=== PATIENT | female | born 1985 | race Hispanic/Latino ===

== ENCOUNTER 2017-02-18 16:39 | Emergency (ER) | payer OTHER ==
[2017-02-18 16:52] VITALS: BMI 27.2
[2017-02-18] MEDS ORDERED: Betamethasone Soluspan 30 mg/5mL Inj Susp IM ONE (16:53)
== END 2017-02-18 17:40 | disposition home or self-care (01) ==
LOC: H.EROB2 16:39
DX: O26.873 Cervical shortening, third trimester (principal); Z3A.32 32 weeks gestation of pregnancy

== ENCOUNTER 2017-02-19 16:57 | Emergency (ER) | payer OTHER ==
[2017-02-18 16:52] VITALS: BMI 27.2
--- NOTE | 2017-02-19 17:03 | OBHP ---
Datetime: 02/19/2017 08:34 IP Adm Impression: , intrauterine ; No Active Labor IP Admit Plan: Discharge home Admit Comment, IP Provider: 31-year-old [id number] at 31 weeks gestational age with finding of shortened cervix in office. He was transferred via primary physician here for steroid course. He is without co mplaints at this time. Patient denies any contractions, vaginal bleeding, leakage of fluid. Patient r eports good movement. Past medical history hypothyroidism Past surgical history none Medications Synthroid, vitamins Allergies penicillin Obstetrical history vaginal delivery 1, full-term vaginal delivery 1 Social history no tobacco, no alcohol, no drugs Assessment: History of labor and delivery with shortened cervix Plan: Patient here for beginning of steroid course. Patient symptomatically this time. heart jack ng reassuring. Patient DC'd home. Patient will return in 24 hours for second steroid course. Extremities - PN: Normal Lungs - PN: Normal Heart - PN: Normal HEENT - PN: Normal General - PN: Normal FHR - Baseline A Provider: 140s EGA AdmitDate IP: 31.5 Vital Signs Provider: Reviewed; Within Normal Limits IP Chief Complaint: Other NICHD Variability Prov Fetus A: Moderate 6-25bpm NICHD Accel Fetus A IP Provider: [id number] FHR Category Provider Fetus A: Category I NICHD Decel Fetus A IP Provider: None
[2017-02-19] MEDS ORDERED: Betamethasone Soluspan 30 mg/5mL Inj Susp IM ONE (17:07)
--- NOTE | 2017-02-19 17:46 | OBHP ---
Datetime: 02/19/2017 17:37 IP Adm Impression: , intrauterine ; No Active Labor IP Admit Plan: Observation/Evaluation; Discharge home Admit Comment, IP Provider: The patient is a 31-year-old 3 para 2 presents to [facility] at 32 weeks for steroid administration. Patient was noted to have shortened cervix and her PMD r eferred her to [facility] for steroids. Patient denies any uterine contractions vaginal bleeding or leakage of fluid. Patient's care this unremarkable. Past medical history none Past surgical history none Allergic to penicillin Social history denies alcohol tobacco use Medications vitamins Obstetrical history one delivery at 35 weeks normal vaginal delivery second full -term normal vaginal delivery Review of systems patient denies headache chest pain shortness of breath palpitations nausea vomit ing dysuria constipation vaginal bleeding or cold intolerance easy bruisability neurological musculos keletal complaints Vital signs stable afebrile Physical exam see notes Intrauterine at 32 weeks History of delivery Short cervix We'll administer steroids Category 1 tracing Follow-up her PMD Pelvic Type - PN: Adequate Extremities - PN: Normal Abdomen - PN: Normal Back - PN: Normal Breast - PN: Not Done Lungs - PN: Normal Heart - PN: Normal Thyroid - PN: Normal Neurologic - PN: Normal HEENT - PN: Normal General - PN: Normal FHR - Baseline A Provider: 145 EGA AdmitDate IP: 31.5 Vital Signs Provider: Reviewed IP Chief Complaint: Other NICHD Variability Prov Fetus A: Moderate 6-25bpm NICHD Accel Fetus A IP Provider: 15X15 FHR Category Provider Fetus A: Category I NICHD Decel Fetus A IP Provider: None Dilatation, Provider: 0 Effacement, Provider: 0 Station, Provider: 0 Genitourinary Exam: Normal DTRs - PN: Normal
== END 2017-02-19 17:58 | disposition home or self-care (01) ==
LOC: H.EROB2 16:57
DX: O26.873 Cervical shortening, third trimester (principal); Z3A.32 32 weeks gestation of pregnancy

== ENCOUNTER 2017-04-21 09:14 | Inpatient (IN) | payer OTHER ==
[2017-04-21] MEDS: Lactated Ringer's 1,000 ML IV SCH ×4 (09:30→23:04)
[2017-04-21 09:31] VITALS: BMI 23.6
--- NOTE | 2017-04-21 09:54 | OBHP ---
Datetime: 04/21/2017 09:49 IP Adm Impression: Term, intrauterine ; No Active Labor IP Admit Plan: Admit to unit Admit Comment, IP Provider: Patient is a 3 para 2 estimated due date 04/24/2017 estimated ge stational age 39+ weeks. Patient presents to labor and delivery for induction of labor. Patient has h istory of precipitous delivery. Patient reports good movement no vaginal bleeding no leakage of fluid no contractions. Patient states care significant for GBS positive culture otherwise u nremarkable. Past medical history hypothyroid Medications Synthroid and vitamins Surgical history significant for ACL repair Social history denies alcohol tobacco use Obstetrical history 2 normal spontaneous vaginal deliveries one delivery delivery patient received steroids this Review of systems patient denies headache chest pain shortness of breath palpitations nausea vomit ing diarrhea constipation dysuria vaginal bleeding or cold intolerance she is to present musculoskele lucien or neurological complaints Vital signs stable afebrile Physical exam see notes Intrauterine at 39+ weeks history of precipitous delivery Patient referred to labor and delivery by PMD for induction of labor External monitor Routine labs PMD is determined induction agent of choice Pelvic Type - PN: Adequate Extremities - PN: Normal Abdomen - PN: Normal Back - PN: Normal Breast - PN: Normal Lungs - PN: Normal Heart - PN: Normal Thyroid - PN: Normal Neurologic - PN: Normal HEENT - PN: Normal General - PN: Normal Weight - Estimated: 7 Presentation-Admit: Vertex FHR - Baseline A Provider: 145 Gestation - Est Wks by US: 39.0 Pool Provider: Negative EGA AdmitDate IP: 39.4 Vital Signs Provider: Reviewed IP Chief Complaint: Scheduled induction of labor NICHD Variability Prov Fetus A: Moderate 6-25bpm NICHD Accel Fetus A IP Provider: [id number] NICHD Decel Fetus A IP Provider: None Dilatation, Provider: 1 Effacement, Provider: 90 Station, Provider: -2 Genitourinary Exam: Normal DTRs - PN: Normal
[2017-04-21 10:18] LABS: BASO % 0.5 % (0.0-2.0); EOS # 0.1 K/uL (0.0-0.7); EOS % 0.9 % (0.0-4.0); HEMOGLOBIN 12.6 g/dL (12.0-16.0); LYMPH # 2.1 K/uL (1.0-4.3); LYMPH % 25.6 % (20.0-40.0); MEAN CELL VOLUME 90.5 fl (81.0-99.0); MEAN CORPUSCULAR HEMOGLOBIN 29.7 pg (27.0-31.0); MEAN CORPUSCULAR HGB CONC 32.8 g/dL (33.0-37.0); MEAN PLATELET VOLUME 11.3 fl (7.2-11.7); MONO # 0.4 K/uL (0.0-0.8); MONO % 5.2 % (0.0-10.0); NEUT # 5.7 K/uL (1.8-7.0); NEUT % 67.8 % (50.0-75.0); NRBC % 0.1 % (0.0-0.0); RBC 4.25 Mil/uL (3.80-5.20); RED CELL DISTRIBUTION WIDTH 14.1 % (11.5-14.5); WHITE BLOOD COUNT 8.3 K/uL (4.8-10.8)
[2017-04-21] MEDS ORDERED: Oxytocin 30 units/LR 500ML 30 U/500 ML BAG IV ONE ×2 (10:32→14:18)
[2017-04-21 10:33] LABS: ALB/GLOB RATIO 1.2 (1.0-2.1); ALBUMIN 3.7 g/dL (3.5-5.0); ALT/SGPT 40 U/L (9-52); AST/SGOT 34 U/L (14-36); BLOOD UREA NITROGEN 10 mg/dl (7-17); CALCIUM 9.4 mg/dL (8.4-10.2); GFR AFRICAN-AMERICAN > 60; GFR NON-AFRICAN AMERICAN > 60
[2017-04-21 10:43] LABS: INR 0.8 (0.9-1.2); PARTIAL THROMBOPLASTIN TIME 27.8 Seconds (25.6-37.1); PROTHROMBIN TIME 9.2 Seconds (9.8-13.1)
[2017-04-21 10:46] VITALS: RESP 18; TEMP 98.2; O2SAT 100
[2017-04-21 10:52] LABS: URIC ACID 5.3 mg/Dl (2.2-7.5)
--- NOTE | 2017-04-21 14:07 | OBPN ---
Datetime: 04/21/2017 14:06 IP Progress Impression: Normal progression of labor IP Informed Consent Obtain: Vaginal Delivery; Induction of Labor; Risks, Benefits and Alternatives D iscussed IP Procedures: Artificial ROM IP Progress Plan: Continue present management; Induction Membranes, Provider: Ruptured Amniotic Fluid Color, Provider: Clear Presentation-Admit: Vertex IP Progress Note Comment: continue induction, pt declines epidural. FHR Category Provider Fetus A: Category I Dilatation, Provider: 6 Effacement, Provider: 90 Station, Provider: -2 Datetime: 04/21/2017 09:49 Pool Provider: Negative FHR - Baseline A Provider: 145 Gestation - Est Wks by US: 39.0 Weight - Estimated: 7 Vital Signs Provider: Reviewed NICHD Accel Fetus A IP Provider: [id number] NICHD Variability Prov Fetus A: Moderate 6-25bpm NICHD Decel Fetus A IP Provider: None
--- NOTE | 2017-04-21 14:07 | OBADHP ---
Datetime: 04/21/2017 14:06 Presentation-Admit: Vertex Amniotic Fluid Color, Provider: Clear Membranes, Provider: Ruptured FHR Category Provider Fetus A: Category I Dilatation, Provider: 6 Effacement, Provider: 90 Station, Provider: -2 Datetime: 04/21/2017 09:49 Admit Comment, IP Provider: Patient is a 3 para 2 estimated due date 04/24/2017 estimated ge stational age 39+ weeks. Patient presents to labor and delivery for induction of labor. Patient has h istory of precipitous delivery. Patient reports good movement no vaginal bleeding no leakage of fluid no contractions. Patient states care significant for GBS positive culture otherwise u nremarkable. Past medical history hypothyroid Medications Synthroid and vitamins Surgical history significant for ACL repair Social history denies alcohol tobacco use Obstetrical history 2 normal spontaneous vaginal deliveries one delivery delivery patient received steroids this Review of systems patient denies headache chest pain shortness of breath palpitations nausea vomit ing diarrhea constipation dysuria vaginal bleeding or cold intolerance she is to present musculoskele lucien or neurological complaints Vital signs stable afebrile Physical exam see notes Intrauterine at 39+ weeks history of precipitous delivery Patient referred to labor and delivery by PMD for induction of labor External monitor Routine labs PMD is determined induction agent of choice Pelvic Type - PN: Adequate Extremities - PN: Normal Abdomen - PN: Normal Back - PN: Normal Breast - PN: Normal Lungs - PN: Normal Heart - PN: Normal Thyroid - PN: Normal Neurologic - PN: Normal HEENT - PN: Normal General - PN: Normal Weight - Estimated: 7 FHR - Baseline A Provider: 145 Gestation - Est Wks by US: 39.0 Pool Provider: Negative Vital Signs Provider: Reviewed IP Chief Complaint: Scheduled induction of labor NICHD Variability Prov Fetus A: Moderate 6-25bpm NICHD Accel Fetus A IP Provider: [id number] NICHD Decel Fetus A IP Provider: None Genitourinary Exam: Normal DTRs - PN: Normal EGA AdmitDate IP: 39.4 IP Adm Impression: Term, intrauterine ; No Active Labor IP Admit Plan: Admit to unit
[2017-04-21] MEDS ORDERED: Lidocaine 1% Inj (20ml) ONE (14:10)
[2017-04-21] MEDS ORDERED: Oxycodone/Acetaminophen 5/325 mg Tab PO PRN (14:14)
[2017-04-21] MEDS ORDERED: Benzocaine/Menthol SPRAY TOP PRN (14:14)
--- NOTE | 2017-04-21 15:48 | OBDS ---
DELIVERY PERSONNEL Delivery Doctor: Ehsan Vazquez MD [employer] Technology Instructor: April Garcia RN MATERNAL INFORMATION Delivery Anesthesia: Local Medications in Delivery: Pitocin 30 units Placenta Cultured: No Provider Comments: uncomplicated of VFN over 2nd degree laceration. placenta delivered intact. repair in usual fashion. mother and stable and bonding. LABOR SUMMARY EDC: 04/24/2017 00:00 No. Babies in Womb: 1 LABOR INFORMATION Reason for Induction: Other Reason for Induction Other: elective Oxytocin: Augmentation Group B Beta Strep: Positive Antibiotics # of Doses: 2 Antibiotics Time of Last Dose: 1445 MEMBRANES Membranes Rupture Method: Artificial Rupture of Membranes: 04/21/2017 14:00 Amniotic Fluid Color: Clear Amniotic Fluid Amount: Moderate Amniotic Fluid Odor: Normal VAGINAL DELIVERY Episiotomy: None Laceration Extension: Second Degree Laceration Type: Perineal Laceration Repair Note: repair in usual sterile fashion with 2-0 chromic suture. no rectal or cervic al lacerations. Sponge Count Correct: Yes Sharps Count Correct: Yes PRESENTATION/POSITION BABY A Presentation: Cephalic Cephalic Presentation: Vertex Vertex Position: Right Occipital Anterior Breech Presentation: N/A PLACENTA INFORMATION BABY A Placenta Method of Delivery: Expressed Placenta Status: Delivered CORD INFORMATION BABY A Nuchal Cord : N/A True Knot: 0
[2017-04-21 21:08] LABS: BASO % 0.2 % (0.0-2.0); EOS % 0.1 % (0.0-4.0); HEMOGLOBIN 10.5 g/dL (12.0-16.0); LYMPH # 1.9 K/uL (1.0-4.3); LYMPH % 17.9 % (20.0-40.0); MEAN CELL VOLUME 90.5 fl (81.0-99.0); MEAN CORPUSCULAR HEMOGLOBIN 29.9 pg (27.0-31.0); MEAN CORPUSCULAR HGB CONC 33.1 g/dL (33.0-37.0); MEAN PLATELET VOLUME 10.8 fl (7.2-11.7); MONO # 0.7 K/uL (0.0-0.8); MONO % 6.1 % (0.0-10.0); NEUT # 8.2 K/uL (1.8-7.0); NEUT % 75.7 % (50.0-75.0); RBC 3.51 Mil/uL (3.80-5.20); RED CELL DISTRIBUTION WIDTH 13.7 % (11.5-14.5); WHITE BLOOD COUNT 10.8 K/uL (4.8-10.8)
[2017-04-21 21:17] LABS: ALB/GLOB RATIO 1.1 (1.0-2.1); ALT/SGPT 49 U/L (9-52); AST/SGOT 40 U/L (14-36); BLOOD UREA NITROGEN 13 mg/dl (7-17); GFR AFRICAN-AMERICAN > 60; GFR NON-AFRICAN AMERICAN > 60; URIC ACID 5.4 mg/Dl (2.2-7.5)
[2017-04-21] MEDS ORDERED: Magnesium Sul 40GM/1L SW 40 GM/1,000 ML ML IV ONE (22:31)
[2017-04-21] MEDS ORDERED: Magnesium Sulfate 4 gm/100 ml 4 GM/100 ML BAG IVPB ONE (22:35)
[2017-04-22 06:37] LABS: ALB/GLOB RATIO 1.2 (1.0-2.1); ALT/SGPT 51 U/L (9-52); AST/SGOT 43 U/L (14-36); BLOOD UREA NITROGEN 9 mg/dl (7-17); CALCIUM 7.7 mg/dL (8.4-10.2); GFR AFRICAN-AMERICAN > 60; GFR NON-AFRICAN AMERICAN > 60; MAGNESIUM 4.7 MG/DL (1.6-2.3); URIC ACID 5.3 mg/Dl (2.2-7.5)
[2017-04-22 06:56] LABS: BASO % 0.3 % (0.0-2.0); EOS # 0.1 K/uL (0.0-0.7); EOS % 0.7 % (0.0-4.0); HEMOGLOBIN 10.5 g/dL (12.0-16.0); LYMPH # 2.3 K/uL (1.0-4.3); LYMPH % 22.9 % (20.0-40.0); MEAN CELL VOLUME 89.3 fl (81.0-99.0); MEAN CORPUSCULAR HEMOGLOBIN 30.7 pg (27.0-31.0); MEAN CORPUSCULAR HGB CONC 34.4 g/dL (33.0-37.0); MEAN PLATELET VOLUME 10.6 fl (7.2-11.7); MONO # 0.5 K/uL (0.0-0.8); MONO % 5.2 % (0.0-10.0); NEUT # 7.2 K/uL (1.8-7.0); NEUT % 70.9 % (50.0-75.0); NRBC % 0.1 % (0.0-0.0); RBC 3.42 Mil/uL (3.80-5.20); RED CELL DISTRIBUTION WIDTH 13.8 % (11.5-14.5); WHITE BLOOD COUNT 10.1 K/uL (4.8-10.8)
[2017-04-22] MEDS ORDERED: Multivitamin With Minerals Tab PO SCH (09:00)
--- NOTE | 2017-04-22 13:30 | OBPPN ---
Datetime: 04/22/2017 13:24 PP Pain Prov: Within normal limits PP Pain Prov comment: c/o mild headache and very tired PP Nausea Prov: Denies PP Flatus Prov: Yes PP Breasts Prov: Not Done PP Heart Prov: Normal PP Lungs Prov: Normal PP Abdomen/Uterus Prov: Normal PP Lochia Prov: Normal PP Vulva/Perineum Prov: Normal PP CVA Tenderness Prov: Not Done PP Extremities Prov: Normal PP Impression Prov: Induced Hypertension PP Plan Prov: Continue present management PP Plan Other Prov: d/c magnesium at 24 hours post delivery PP Progress Note Prov: ppd #1 s/p with pre-eclampsia complete magnesium, begin labetalol 200 Q8 hr, transfer to if stable plan discharge tomorrow IP PP Procedures: None Vital Signs Provider PP: Reviewed; Within Normal Limits Vital Signs Provider Details PP: PLT 141, AST 43, cr 0.8 UOP >200 cc/hr
--- NOTE | 2017-04-22 13:32 | OBDCSUM ---
Datetime: 04/22/2017 13:29 Discharged to, Provider: Home Follow up at, Provider: dr wang Disch Instr Activity: Normal activity Disch Instr Diet: Regular Discharge Instructions, Provider: Routine instructions given Discharge Diagnosis, Provider: Term Delivered; Preeclampsia Discharge Time: 04/22/2017 13:29 Follow up in weeks, Provider: 2 weeks Disch Referrals: None Contraception discussed, Prov: Yes Disch Activity Restrictions: No sexual activity; Nothing in vagina - Sasser, tampons, douche Discharge Comment, Provider: s/p with preeclampsia. treated with magnesium sulfate x 24 hours. Contraception after Delivery: Undecided
[2017-04-22] MEDS ORDERED: Oxycodone/Acetaminophen 5/325 mg Tab PO PRN (20:27)
[2017-04-22] MEDS ORDERED: Benzocaine/Menthol SPRAY TOP PRN (20:27)
[2017-04-23] MEDS ORDERED: Levothyroxine 75 MCG TAB PO SCH ×3 (06:30)
[2017-04-23] MEDS ORDERED: Multivitamin With Minerals Tab PO SCH (09:00)
[2017-04-23] MEDS ORDERED: Prenatal Multivit/Folic Acid/Iron Tab PO SCH (09:00)
[2017-04-23 09:07] VITALS: PULSE 91
--- NOTE | 2017-04-23 13:38 | OBPPN ---
Datetime: 04/23/2017 13:27 PP Pain Prov: Within normal limits PP Pain Prov comment: no SOB, chest pain or leg pain PP Nausea Prov: Denies PP Flatus Prov: Yes PP Lungs Prov: Normal PP Abdomen/Uterus Prov: Normal PP Lochia Prov: Normal PP CVA Tenderness Prov: Normal PP Extremities Prov: Abnormal PP C/S Incision Prov: Not Applicable PP Progress Prov: Normal PP Comments Phys Exam Prov: breast not engorged Abd soft not distended fundus firm below umb NT ext no edema or calf tenderness but DTR brisk. PP Plan Prov: Continue present management PP Impression Other Prov: pre-eclampsia PP PP Progress Note Prov: BP still elevated and will get medical consult Pt informed and understands an d agreed. IP PP Procedures: None Vital Signs Provider PP: Reviewed
[2017-04-23 17:16] VITALS: BP 160/107
--- NOTE | 2017-04-23 17:33 | OBPPN ---
Datetime: 04/23/2017 17:30 PP Pain Prov: Within normal limits PP Nausea Prov: Denies PP Flatus Prov: Yes PP Breasts Prov: Not Done PP Heart Prov: Normal PP Lungs Prov: Normal PP Abdomen/Uterus Prov: Normal PP Lochia Prov: Normal PP Vulva/Perineum Prov: Normal PP CVA Tenderness Prov: Not Done PP Extremities Prov: Normal PP Comments Phys Exam Prov: denies h/a, no n/v no edema. excellent diuresis PP Impression Prov: Normal progression PP Plan Prov: Discharge PP Progress Note Prov: discharge today rto 72 hours for bp check at office increase labetaloll to 200 mg tid. IP PP Procedures: None Vital Signs Provider PP: Reviewed
== END 2017-04-23 07:30 | disposition home or self-care (01) | DRG 774 ==
LOC: H.EROB2 09:14 → H.L&D 09:25 → H.EROB2 09:43 → H.OB/GYN 19:17 → H.L&D 22:20 → H.OB/GYN 04-22 20:14
PROVIDERS: ADMIT Specialist; ATTEND Specialist
PROC: 10E0XZZ Delivery of Products of Conception, External Approach (ICD-10-PCS; principal; 2017-04-21)
PROC: 0KQM0ZZ Repair Perineum Muscle, Open Approach (ICD-10-PCS; 2017-04-21)
PROC: 10907ZC Drainage of Amniotic Fluid, Therapeutic from Products of Conception, Via Natural or Artificial Opening (ICD-10-PCS; 2017-04-21)
PROC: 4A0HXCZ Measurement of Products of Conception, Cardiac Rate, External Approach (ICD-10-PCS; 2017-04-21)
DX: O36.63X0 Maternal care for excessive fetal growth, third trimester, not applicable or unspecified (principal); O14.95 Unspecified pre-eclampsia, complicating the puerperium; O70.1 Second degree perineal laceration during delivery; O99.284 Endocrine, nutritional and metabolic diseases complicating childbirth; E03.9 Hypothyroidism, unspecified; O99.824 Streptococcus B carrier state complicating childbirth; Z3A.39 39 weeks gestation of pregnancy; Z37.0 Single live birth; Z88.0 Allergy status to penicillin